=== PATIENT | female | born 2000 | race African-American/Black ===

== ENCOUNTER 2023-01-19 18:12 | Emergency (ER) | payer MEDICAID ==
[~2023-01-19] VITALS: Ht 165.1 cm; Wt 91.0 kg
[2023-01-19 18:16] VITALS: BP 125/77
[2023-01-19 19:50] LABS: BASOPHILS % 0.4 % (0.0-2.0); EOSINOPHILS % 4.7 % (0.0-5.0); HEMATOCRIT. 38.5 % (36.0-48.0); HEMOGLOBIN. 12.3 g/dL (12.0-16.0); LYMPHOCYTES % 32.6 % (20.0-50.0); MEAN CORPUSCULAR HEMOGLOBIN 26.6 pg (28.0-32.0); MEAN CORPUSCULAR VOLUME 82.9 fL (81.0-99.0); MEAN PLATELET VOLUME 8.1 fl (7.4-10.4); MONOCYTES % 8.9 % (2.0-8.0); NEUTROPHILS % 53.4 % (40.0-76.0); PLATELET 301 x1000/uL (130-400); RED BLOOD CELL COUNT 4.64 mill/uL (4.2-5.4); RED CELL DISTRIBUTION WIDTH 14.2 % (11.6-14.6)
[2023-01-19 19:59] LABS: CHLORIDE 106 mEq/L (98-107)
[2023-01-19 20:03] LABS: HCG SCREEN NEGATIVE
[2023-01-19 20:07] LABS: ETHANOL BLOOD < 10 mg/dL
[2023-01-19 20:31] LABS: *BARBITURATES SCREEN URINE NEGATIVE (NEGATIVE); *BENZODIAZEPINES SCREEN URINE NEGATIVE (NEGATIVE); *COCAINE SCREEN URINE NEGATIVE (NEGATIVE); METHADONE URINE SCREEN NEGATIVE (NEGATIVE); OPIATES URINE SCREEN NEGATIVE (NEGATIVE)
[2023-01-19 20:44] LABS: *AMPHETAMINES SCREEN URINE PRESUMTIVE POSITIVE (NEGATIVE); CANNABINOID URINE SCREEN PRESUMTIVE POSITIVE (NEGATIVE); PHENCYCLIDINE URINE SCREEN PRESUMTIVE POSITIVE (NEGATIVE)
== END 2023-01-19 21:18 | disposition home or self-care (01) ==
LOC: ER 18:12
DX: N93.9 Abnormal uterine and vaginal bleeding, unspecified (principal); F19.10 Other psychoactive substance abuse, uncomplicated
CPT/HCPCS: 36415; 80053; 80305; 80320; 81025; 84703; 85025; 99283; G0480